=== PATIENT | female | born 2000 | race Two or more races ===

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

== ENCOUNTER 2018-01-21 01:57 | Inpatient (IN) | payer MEDICAID ==
[~2018-01-21] VITALS: Ht 165.1 cm; Wt 112.0 kg
[2018-01-21 02:23] VITALS: BP 138/84
[2018-01-21] MEDS ORDERED: OXYTOCIN 30U/ 0.9% NaCL 500ML 500 ML IV ONE (05:02)
[2018-01-21] MEDS ORDERED: D5%-LACTATED RINGERS 1,000 ML IV SCH (05:02)
[2018-01-21] MEDS ORDERED: NEWBORN KIT ONE (05:05)
[2018-01-21] MEDS: LACTATED RINGERS 1,000 ML IV SCH ×2 (05:15→13:23)
[2018-01-21] MEDS ORDERED: FENTANYL PF 100 MCG/2ML IVPush PRN (05:30)
[2018-01-21] MEDS ORDERED: CALCIUM CARBONATE 500 MG TAB.CHEW PO PRN (05:30)
[2018-01-21] MEDS ORDERED: FENTANYL PF 100 MCG/2ML IV PRN (05:30)
[2018-01-21] MEDS ORDERED: ONDANSETRON ODT 4 MG PO PRN (05:30)
[2018-01-21 05:35] LABS: BASOPHILS # (AUTO) 0.02 x10^3/uL (0-0.3); BASOPHILS % (AUTO) 0 % (0-1); EOSINOPHILS # (AUTO) 0.11 x10^3/uL (0-0.8); EOSINOPHILS % (AUTO) 1 % (1-7); LYMPHOCYTES # (AUTO) 2.18 x10^3/uL (1-6.1); LYMPHOCYTES % (AUTO) 26 % (22-44); MD NO; MEAN CORPUSCULAR HEMOGLOBIN 30.2 pg (27.0-34.8); MEAN CORPUSCULAR HGB CONC 33.6 g/dL (32.4-35.8); MEAN CORPUSCULAR VOLUME 89.7 fL (80-100); MEAN PLATELET VOLUME 8.3 fL (7.4-10.4); MONOCYTES # (AUTO) 0.43 x10^3/uL (0-1.4); MONOCYTES % (AUTO) 5 % (2-9); NEUTROPHILS # (AUTO) 5.65 x10^3/uL (1.8-8.0); NEUTROPHILS % (AUTO) 67 % (42-75); PLATELET COUNT 228 x10^3/uL (130-400); RED BLOOD COUNT 4.11 x10^6/uL (3.82-5.3); RED CELL DISTRIBUTION WIDTH 14.2 % (9.6-15.2)
[2018-01-21] MEDS ORDERED: PENICILLIN GK 5,000,000 UNITS in SODIUM CHLORIDE 0.9% 100 ML IVPB ONE (06:00)
[2018-01-21 07:14] VITALS: BP 128/78
[2018-01-21] MEDS ORDERED: OXYTOCIN 30U/ 0.9% NaCL 500ML 500 ML ONE ×2 (08:19→17:06)
[2018-01-21] MEDS ORDERED: LIDOCAINE/PF 1%, 30ML ONE (08:35)
[2018-01-21] MEDS ORDERED: MISOPROSTOL 200 MCG TABLET ONE (08:35)
[2018-01-21] MEDS ORDERED: ONDANSETRON ODT 4 MG ONE (08:45)
[2018-01-21] MEDS ORDERED: ONDANSETRON 2MG/ML, 2ML ONE (08:45)
[2018-01-21] MEDS ORDERED: ONDANSETRON 2MG/ML, 2ML IVPush ONE (09:00)
[2018-01-21] MEDS: PENICILLIN GK 2,500,000 UNITS in DEXTROSE 5% 100 ML IVPB SCH ×2 (09:59→13:56)
[2018-01-21] MEDS ORDERED: OXYTOCIN 30U/ 0.9% NaCL 500ML 500 ML IV SCH (11:00)
[2018-01-21] MEDS ORDERED: FENTANYL PF 100 MCG/2ML ONE (15:02)
[2018-01-21] MEDS ORDERED: FENTANYL/BUPIV./NS/PF 250 ML EPIDCONT SCH (15:22)
[2018-01-21] MEDS ORDERED: FENTANYL PF 500 MCG, BUPIVACAINE/PF 0.5%, 30ML 62.5 ML in SODIUM CHLORIDE 0.9% 177.5 ML EPIDCONT SCH (15:30)
[2018-01-21] MEDS ORDERED: BUPIVACAINE 0.25% ONE (15:48)
[2018-01-21] MEDS ORDERED: IBUPROFEN 200 MG TABLET PO PRN (16:00)
[2018-01-21] MEDS ORDERED: IBUPROFEN 600 MG TABLET ONE (16:16)
[2018-01-21] MEDS ORDERED: OXYcodone IR 5MG TABLET PO PRN ×2 (16:30)
[2018-01-21] MEDS ORDERED: ONDANSETRON 2MG/ML, 2ML IV PRN (16:30)
[2018-01-21] MEDS ORDERED: CARBOPROST TROMETHAMINE 250 MCG/ML, 1ML IM PRN (16:30)
[2018-01-21] MEDS ORDERED: METHYLERGONOVINE 0.2 MG/ML IM PRN (16:30)
[2018-01-21] MEDS ORDERED: IBUPROFEN 800 MG TABLET PO PRN (16:30)
[2018-01-21] MEDS ORDERED: MISOPROSTOL 200 MCG TABLET PR PRN (16:30)
[2018-01-21] MEDS: OXYTOCIN 30U/ 0.9% NaCL 500ML 500 ML IV SCH (17:00)
[2018-01-21 20:30] VITALS: BP 130/71
[2018-01-21] MEDS: IBUPROFEN 600 MG TABLET PO PRN (22:50)
[2018-01-22] VITALS: BP 116/67
[2018-01-22] MEDS: OXYTOCIN 30U/ 0.9% NaCL 500ML 500 ML IV SCH ×3 (03:00→23:00)
[2018-01-22 03:57] VITALS: BP 114/68
[2018-01-22] MEDS: IBUPROFEN 600 MG TABLET PO PRN ×3 (05:06→18:17)
[2018-01-22 05:57] LABS: BASOPHILS # (AUTO) 0.03 x10^3/uL (0-0.3); BASOPHILS % (AUTO) 0 % (0-1); EOSINOPHILS # (AUTO) 0.05 x10^3/uL (0-0.8); EOSINOPHILS % (AUTO) 1 % (1-7); LYMPHOCYTES # (AUTO) 2.23 x10^3/uL (1-6.1); LYMPHOCYTES % (AUTO) 24 % (22-44); MD NO; MEAN CORPUSCULAR HEMOGLOBIN 30.7 pg (27.0-34.8); MEAN CORPUSCULAR HGB CONC 33.8 g/dL (32.4-35.8); MEAN CORPUSCULAR VOLUME 90.8 fL (80-100); MEAN PLATELET VOLUME 8.7 fL (7.4-10.4); MONOCYTES # (AUTO) 0.61 x10^3/uL (0-1.4); MONOCYTES % (AUTO) 7 % (2-9); NEUTROPHILS % (AUTO) 68 % (42-75); PLATELET COUNT 217 x10^3/uL (130-400); RED BLOOD COUNT 3.63 x10^6/uL (3.82-5.3); RED CELL DISTRIBUTION WIDTH 14.4 % (9.6-15.2)
[2018-01-22] MEDS: PRENATAL VIT/IRON/FA 1 EACH TABLET PO SCH (09:00)
[2018-01-22 09:15] VITALS: BP 117/71
[2018-01-22 12:29] VITALS: BP 126/77
[2018-01-22 21:00] VITALS: BP 119/60
[2018-01-23 07:45] VITALS: BP 130/84
[2018-01-23] MEDS: PRENATAL VIT/IRON/FA 1 EACH TABLET PO SCH (08:22)
[2018-01-23] MEDS: IBUPROFEN 600 MG TABLET PO PRN (08:23)
== END 2018-01-23 12:30 | disposition home or self-care (01) | DRG 807 ==
LOC: LDOP 01:57 → LDIP 05:05 → 2NW 19:25
PROVIDERS: ADMIT Obstetrics & Gynecology; ATTEND Obstetrics & Gynecology
PROC: 10E0XZZ Delivery of Products of Conception, External Approach (ICD-10-PCS; principal; 2018-01-21)
PROC: 10907ZC Drainage of Amniotic Fluid, Therapeutic from Products of Conception, Via Natural or Artificial Opening (ICD-10-PCS; 2018-01-21)
DX: O99.824 Streptococcus B carrier state complicating childbirth (principal); Z37.0 Single live birth; Z3A.37 37 weeks gestation of pregnancy; Z88.6 Allergy status to analgesic agent; O63.9 Long labor, unspecified
CPT/HCPCS: 36415; 85025; 86850; 86900; G0378; J2405; J2540; J3010; J3490; J2590; J7050; J7120

== ENCOUNTER 2019-10-09 08:57 | Emergency (ER) | payer MEDICAID ==
[~2019-10-09] VITALS: Ht 165.1 cm; Wt 94.1 kg
[~2019-10-09 08:57] MED LIST changes: +ACET325T14 PO
[2019-10-09 09:33] VITALS: BP 114/69
--- NOTE | 2019-10-09 09:42 | NUR ---
TASK RN NOTE: PT PRESENTS TO ED SEEKING TEST, STATES "AT THE BEGINNING OF AUGUST I HAD A POSITIVE TEST AND THEN TWO NEGATIVE AFTER THAT." PT REPORTS FEELING INTRA-ABDOMINAL MOVEMENT. PT STATES LMP 09/20/19. PT DENIES VAG BLEEDING/DISCHARGE, PT DENIES PAIN, DENIES CRAMPING. BP AND SPO2 MONITORS IN PLACE. CLEAN CATCH URINE SAMPLE SENT TO LAB. REPORT GIVEN TO PRIMARY RN MOLLY.
[2019-10-09 09:48] LABS: MICROSCOPIC NOT IND
== END 2019-10-09 10:52 | disposition home or self-care (01) ==
LOC: ED 09:39
DX: Z00.00 Encounter for general adult medical examination without abnormal findings (principal)
CPT/HCPCS: 36415; 81003; 84703; 99283

== ENCOUNTER 2019-12-30 11:37 | Emergency (ER) | payer MEDICAID ==
[~2019-12-30] VITALS: Ht 165.1 cm; Wt 94.8 kg
--- NOTE | 2019-12-30 12:33 | NUR ---
TASK RN NOTE: PT RESTING IN BED, TELEVISION ON. NAD NOTED AT THIS TIME. AWAITING ORDERS.
[2019-12-30 13:00] LABS: BASOPHILS # (AUTO) 0.03 x10^3/uL (0-0.1); BASOPHILS % (AUTO) 1 % (0-1); EOSINOPHILS # (AUTO) 0.06 x10^3/uL (0-0.4); EOSINOPHILS % (AUTO) 1 % (1-7); LYMPHOCYTES # (AUTO) 2.08 x10^3/uL (1-3.4); LYMPHOCYTES % (AUTO) 31 % (22-44); MD NO; MEAN CORPUSCULAR HEMOGLOBIN 30.7 pg (27.0-34.8); MEAN CORPUSCULAR HGB CONC 33.1 g/dL (32.4-35.8); MEAN CORPUSCULAR VOLUME 92.7 fL (80-100); MEAN PLATELET VOLUME 7.9 fL (7.4-10.4); MONOCYTES # (AUTO) 0.37 x10^3/uL (0.2-0.8); MONOCYTES % (AUTO) 6 % (2-9); NEUTROPHILS # (AUTO) 4.21 x10^3/uL (1.8-6.8); NEUTROPHILS % (AUTO) 62 % (42-75); PLATELET COUNT 241 x10^3/uL (130-400); RED BLOOD COUNT 4.51 x10^6/uL (3.82-5.3); RED CELL DISTRIBUTION WIDTH 12.7 % (9.6-15.2)
[2019-12-30 13:11] LABS: ALBUMIN 3.3 g/dL (3.4-5.0); ANION GAP 8 mmol/L (5-15); CHLORIDE 107 mmol/L (98-107)
--- NOTE | 2019-12-30 13:15 | NUR ---
PT BACK FROM US. LAYING ON JEANETH LOVELL VSS. PT DENIES ANY NEEDS AT THIS TIME. BLANKET PROVIDED. CALL LIGHT WITHIN REACH.
[2019-12-30 13:29] LABS: ALANINE AMINOTRANSFERASE 18 U/L (12-78); ALKALINE PHOSPHATASE 35 U/L (45-117); BILIRUBIN,TOTAL 0.6 mg/dL (0.2-1.0); CREATININE 0.63 mg/dL (0.55-1.02); TOTAL PROTEIN 6.9 g/dL (6.4-8.2)
[2019-12-30 13:41] LABS: MICROSCOPIC NOT IND
[2019-12-30 14:00] VITALS: BP 104/72
--- NOTE | 2019-12-30 14:16 | NUR ---
Patient given discharge instructions and they have confirmed that they understand the instructions. Patient ambulatory with steady gait.
== END 2019-12-30 14:21 | disposition home or self-care (01) ==
LOC: ED 13:25
DX: O20.0 Threatened abortion (principal); Z32.01 Encounter for pregnancy test, result positive
CPT/HCPCS: 36415; 76801; 80053; 81003; 84702; 85025; 86901; 99284

== ENCOUNTER 2020-03-27 21:52 | Outpatient (CLI) | payer SELFPAY ==
[~2020-03-27] VITALS: Ht 165.1 cm; Wt 96.0 kg
[2020-03-27 22:18] VITALS: BP 133/64
[2020-03-27 22:40] LABS: MICROSCOPIC AUTO
== END 2020-03-27 23:59 | disposition home or self-care (01) ==
LOC: LDOP 21:52 → MERGE 21:52 → LDOP 23:59
PROVIDERS: ATTEND Obstetrics & Gynecology
DX: O26.892 Other specified pregnancy related conditions, second trimester (principal); R10.9 Unspecified abdominal pain; Z3A.22 22 weeks gestation of pregnancy
CPT/HCPCS: 81001; 87086

== ENCOUNTER 2020-03-27 22:34 | Outpatient (CLI) | payer MEDICAID ==
[~2020-03-27] VITALS: Ht 165.1 cm; Wt 96.0 kg
[2020-03-27 22:18] VITALS: BP 133/64
== END 2020-03-27 23:27 | disposition home or self-care (01) ==
LOC: LDOP 22:34
PROVIDERS: ATTEND Obstetrics & Gynecology
DX: O26.892 Other specified pregnancy related conditions, second trimester (principal); R10.9 Unspecified abdominal pain; Z3A.22 22 weeks gestation of pregnancy
CPT/HCPCS: 99201; G0463

== ENCOUNTER 2020-03-27 23:31 | Emergency (ER) | payer MEDICAID ==
[~2020-03-27] VITALS: Ht 165.1 cm; Wt 95.0 kg
--- NOTE | 2020-03-27 23:38 | NUR ---
Cleared by OB here for abdominal pain.
[2020-03-28] MEDS ORDERED: ONDANSETRON 2MG/ML, 2ML IVPush ONE
[2020-03-28] MEDS ORDERED: MORPHINE SULFATE 4 MG/ML, 1ML IVPush PRN
[2020-03-28] MEDS ORDERED: SODIUM CHLORIDE 0.9% 1,000 ML IV ONE
[2020-03-28] MEDS ORDERED: SODIUM CHLORIDE FLUSH 10ML SYR IVF ONE
[2020-03-28] MEDS ORDERED: ONDANSETRON 2MG/ML, 2ML ONE (00:09)
[2020-03-28] MEDS ORDERED: MORPHINE SULFATE 4 MG/ML, 1ML ONE (00:09)
[2020-03-28 00:14] LABS: BASOPHILS % (AUTO) 1 % (0-1); EOSINOPHILS % (AUTO) 1 % (1-7); LYMPHOCYTES % (AUTO) 35 % (22-44); MD NO; MEAN CORPUSCULAR HEMOGLOBIN 31.2 pg (27.0-34.8); MEAN CORPUSCULAR HGB CONC 34.5 g/dL (32.4-35.8); MEAN PLATELET VOLUME 8.3 fL (7.4-10.4); MONOCYTES % (AUTO) 5 % (2-9); NEUTROPHILS % (AUTO) 59 % (42-75); PLATELET COUNT 230 x10^3/uL (130-400); RED BLOOD COUNT 4.15 x10^6/uL (3.82-5.3); RED CELL DISTRIBUTION WIDTH 13.6 % (9.6-15.2)
--- NOTE | 2020-03-28 00:21 | NUR ---
LATE ENTRY. CC OF ABD PAIN 5/10 BILAT LOWER ABD SINCE 8 PM, WORSE ON RIGHT SIDE. . SO AT BEDSIDE. PT LAYING ON R SIDE FOR COMFORT.
[2020-03-28 00:25] LABS: ANION GAP 7 mmol/L (5-15); CALCIUM 8.6 mg/dL (8.5-10.1); CHLORIDE 109 mmol/L (98-107); CREATININE 0.63 mg/dL (0.55-1.02)
[2020-03-28 00:26] LABS: ALANINE AMINOTRANSFERASE 13 U/L (12-78)
[2020-03-28 00:28] LABS: ALKALINE PHOSPHATASE 45 U/L (45-117); BILIRUBIN,TOTAL 0.3 mg/dL (0.2-1.0); TOTAL PROTEIN 6.7 g/dL (6.4-8.2)
[2020-03-28] MEDS ORDERED: FAMOTIDINE 20 MG TABLET ONE (01:17)
[2020-03-28] MEDS ORDERED: MAALOX/HYOSCYAMINE/LIDOCAINE 45 ML BTL ONE (01:17)
[2020-03-28 01:20] LABS: MICROSCOPIC NOT IND
[2020-03-28] MEDS ORDERED: MAALOX/HYOSCYAMINE/LIDOCAINE 45 ML BTL PO ONE (01:30)
[2020-03-28] MEDS ORDERED: FAMOTIDINE 20 MG TABLET PO/NG ONE (01:30)
[2020-03-28 03:01] VITALS: BP 110/57
== END 2020-03-28 03:03 | disposition home or self-care (01) ==
LOC: ED 23:42
DX: O26.892 Other specified pregnancy related conditions, second trimester (principal); R10.84 Generalized abdominal pain; Z90.49 Acquired absence of other specified parts of digestive tract; Z3A.22 22 weeks gestation of pregnancy
CPT/HCPCS: 36415; 76815; 80053; 81003; 85025; 96361; 96374; 96375; 99285; J2270; J2405; J7030

== ENCOUNTER 2020-04-06 15:25 | Outpatient (CLI) | payer MEDICAID ==
[~2020-04-06] VITALS: Ht 165.1 cm; Wt 95.9 kg
[2020-04-06 15:37] VITALS: BP 120/88
[2020-04-06 15:39] VITALS: BP 120/88
[2020-04-06 16:23] LABS: MICROSCOPIC INDICATED
[2020-04-06] MEDS ORDERED: D5%-LACTATED RINGERS 1,000 ML IV SCH (16:30)
[2020-04-06] MEDS ORDERED: LACTATED RINGERS 1,000 ML IVBOLUS ONE (16:30)
[2020-04-06] MEDS ORDERED: ONDANSETRON 2MG/ML, 2ML IVPush PRN (16:30)
[2020-04-06] MEDS ORDERED: ONDANSETRON 2MG/ML, 2ML ONE (16:33)
[2020-04-06 16:49] LABS: ALANINE AMINOTRANSFERASE 16 U/L (12-78); ALBUMIN 3.1 g/dL (3.4-5.0); ANION GAP 7 mmol/L (5-15); BASOPHILS % (AUTO) 0 % (0-1); CHLORIDE 110 mmol/L (98-107); CREATININE 0.56 mg/dL (0.55-1.02); EOSINOPHILS % (AUTO) 0 % (1-7); LYMPHOCYTES % (AUTO) 22 % (22-44); MEAN CORPUSCULAR HEMOGLOBIN 31.5 pg (27.0-34.8); MEAN CORPUSCULAR HGB CONC 34.7 g/dL (32.4-35.8); MEAN PLATELET VOLUME 8.9 fL (7.4-10.4); MONOCYTES % (AUTO) 5 % (2-9); NEUTROPHILS % (AUTO) 73 % (42-75); PLATELET COUNT 217 x10^3/uL (130-400); RED BLOOD COUNT 4.21 x10^6/uL (3.82-5.3); RED CELL DISTRIBUTION WIDTH 13.5 % (9.6-15.2)
[2020-04-06 16:50] LABS: MD NO
[2020-04-06 16:51] LABS: ALKALINE PHOSPHATASE 52 U/L (45-117); BILIRUBIN,TOTAL 0.3 mg/dL (0.2-1.0)
[2020-04-06] MEDS ORDERED: ACETAMINOPHEN 325 MG TABLET ONE (17:18)
[2020-04-06] MEDS ORDERED: ACETAMINOPHEN 325 MG TABLET PO PRN (17:30)
== END 2020-04-06 19:28 | disposition home or self-care (01) ==
LOC: LDOP 15:25
PROVIDERS: ATTEND Obstetrics & Gynecology
DX: O21.2 Late vomiting of pregnancy (principal); Z20.828 Contact with and (suspected) exposure to other viral communicable diseases; O26.892 Other specified pregnancy related conditions, second trimester; R10.9 Unspecified abdominal pain; R19.7 Diarrhea, unspecified; Z3A.23 23 weeks gestation of pregnancy
CPT/HCPCS: 36415; 76817; 80053; 81001; 85025; 87086; 87635; 96361; 96374; 99211; J2405; J7120; 96360; 96375; G0463

== ENCOUNTER 2020-05-09 13:06 | Outpatient (CLI) | payer MEDICAID ==
[~2020-05-09] VITALS: Ht 165.1 cm; Wt 102.3 kg
== END 2020-05-09 13:58 | disposition home or self-care (01) ==
LOC: LDOP 13:06
PROVIDERS: ATTEND Obstetrics & Gynecology
DX: O36.8130 Decreased fetal movements, third trimester, not applicable or unspecified (principal); O99.513 Diseases of the respiratory system complicating pregnancy, third trimester; R06.02 Shortness of breath; Z3A.28 28 weeks gestation of pregnancy
CPT/HCPCS: 59025

== ENCOUNTER 2020-05-12 10:28 | Emergency (ER) | payer MEDICAID ==
[~2020-05-12] VITALS: Ht 165.1 cm; Wt 103.1 kg
--- NOTE | 2020-05-12 10:56 | NUR ---
patient arrives with sob and pain in back left upper rib area that began this morning. she had covid three weeks ago, but has been sob afterwards getting increasingly worse.
--- NOTE | 2020-05-12 11:03 | NUR ---
PATIENT 27 WEEKS . NO COMPLICATIONS ACCORDING TO HER. PARA 2/ 5
[2020-05-12] MEDS ORDERED: ACETAMINOPHEN 500 MG TABLET PO ONE (11:30)
[2020-05-12] MEDS ORDERED: ACETAMINOPHEN 500 MG TABLET ONE (11:32)
[2020-05-12 11:53] LABS: BASOPHILS % (AUTO) 0 % (0-1); EOSINOPHILS % (AUTO) 0 % (1-7); LYMPHOCYTES % (AUTO) 17 % (22-44); MEAN CORPUSCULAR HEMOGLOBIN 31.4 pg (27.0-34.8); MEAN CORPUSCULAR HGB CONC 34.4 g/dL (32.4-35.8); MEAN PLATELET VOLUME 8.3 fL (7.4-10.4); MONOCYTES % (AUTO) 5 % (2-9); NEUTROPHILS % (AUTO) 79 % (42-75); PLATELET COUNT 238 x10^3/uL (130-400); RED BLOOD COUNT 4.01 x10^6/uL (3.82-5.3)
[2020-05-12 12:05] LABS: ALANINE AMINOTRANSFERASE 14 U/L (12-78); ALBUMIN 2.7 g/dL (3.4-5.0); ANION GAP 7 mmol/L (5-15); CALCIUM 8.9 mg/dL (8.5-10.1); CHLORIDE 110 mmol/L (98-107); CREATININE 0.62 mg/dL (0.55-1.02)
[2020-05-12 12:08] LABS: MD NO
[2020-05-12 12:12] LABS: ALKALINE PHOSPHATASE 82 U/L (45-117); BILIRUBIN,TOTAL 0.4 mg/dL (0.2-1.0); TOTAL PROTEIN 6.6 g/dL (6.4-8.2)
--- NOTE | 2020-05-12 12:41 | NUR ---
CALLED L AND D TO ALERT THEM A 27 WEEK PATIENT HERE IN ER
--- NOTE | 2020-05-12 13:07 | NUR ---
FHTs 140 bpm, no decreases, increases heard. Pt states baby active. Declines cramping, LOF, bleeding.
[2020-05-12 13:25] VITALS: BP 128/70
== END 2020-05-12 14:10 | disposition home or self-care (01) ==
LOC: ED 12:26
DX: O98.513 Other viral diseases complicating pregnancy, third trimester (principal); J06.9 Acute upper respiratory infection, unspecified; Z20.822 Contact with and (suspected) exposure to COVID-19; R00.0 Tachycardia, unspecified; Z3A.29 29 weeks gestation of pregnancy
CPT/HCPCS: 36415; 71045; 80053; 83605; 84145; 85025; 86140; 87040; 93005; 99285

== ENCOUNTER 2020-07-08 14:38 | Inpatient (IN) | payer MEDICAID ==
[~2020-07-08] VITALS: Ht 165.1 cm; Wt 112.7 kg
[2020-07-08 14:35] VITALS: BP 163/75
[2020-07-08 15:15] LABS: BASOPHILS % (AUTO) 1 % (0-1); EOSINOPHILS % (AUTO) 0 % (1-7); LYMPHOCYTES % (AUTO) 26 % (22-44); MEAN CORPUSCULAR HEMOGLOBIN 30.7 pg (27.0-34.8); MEAN CORPUSCULAR HGB CONC 33.9 g/dL (32.4-35.8); MEAN PLATELET VOLUME 9.4 fL (7.4-10.4); MONOCYTES % (AUTO) 6 % (2-9); NEUTROPHILS % (AUTO) 68 % (42-75); PLATELET COUNT 186 x10^3/uL (130-400); RED BLOOD COUNT 4.51 x10^6/uL (3.82-5.3); RED CELL DISTRIBUTION WIDTH 13.4 % (9.6-15.2)
[2020-07-08 15:18] LABS: MD NO
[2020-07-08 15:26] LABS: MICROSCOPIC NOT IND
[2020-07-08 15:28] LABS: ALANINE AMINOTRANSFERASE 21 U/L (12-78); ALBUMIN 2.7 g/dL (3.4-5.0); ANION GAP 8 mmol/L (5-15); CALCIUM 9.1 mg/dL (8.5-10.1); CHLORIDE 109 mmol/L (98-107); CREATININE 0.63 mg/dL (0.55-1.02)
[2020-07-08 15:30] LABS: ALKALINE PHOSPHATASE 169 U/L (45-117); BILIRUBIN,TOTAL 0.3 mg/dL (0.2-1.0); TOTAL PROTEIN 6.6 g/dL (6.4-8.2)
[2020-07-08 15:38] LABS: BILIRUBIN, DIRECT < 0.1 mg/dL (0.1-0.2)
[2020-07-08 15:40] LABS: CREATININE,URINE RANDOM 33.9 mg/dL
[2020-07-08] MEDS ORDERED: OXYTOCIN 30U/ 0.9% NaCL 500ML 500 ML IV ONE (16:00)
[2020-07-08] MEDS ORDERED: ONDANSETRON 2MG/ML, 2ML IVPush PRN (16:00)
[2020-07-08] MEDS ORDERED: CALCIUM CARBONATE 500 MG TAB.CHEW PO PRN (16:00)
[2020-07-08] MEDS ORDERED: FENTANYL PF 100 MCG/2ML IVPush PRN (16:00)
[2020-07-08] MEDS ORDERED: TERBUTALINE 1 MG/ML, 1ML SQ PRN (16:00)
[2020-07-08] MEDS ORDERED: TERBUTALINE 1 MG/ML, 1ML IVPush PRN (16:00)
[2020-07-08] MEDS ORDERED: FENTANYL PF 100 MCG/2ML IV PRN (16:00)
[2020-07-08] MEDS: D5%-LACTATED RINGERS 1,000 ML IV SCH (17:00)
[2020-07-08] MEDS: LACTATED RINGERS 1,000 ML IV SCH (18:00)
[2020-07-08] MEDS ORDERED: NEWBORN KIT ONE (18:21)
[2020-07-08] MEDS ORDERED: LIDOCAINE 1%, 20ML ONE (18:22)
[2020-07-08] MEDS ORDERED: MISOPROSTOL 200 MCG TABLET ONE (18:22)
[2020-07-08] MEDS ORDERED: OXYTOCIN 30U/ 0.9% NaCL 500ML 500 ML IV PRN (19:00)
[2020-07-08] MEDS ORDERED: ACETAMINOPHEN 325 MG TABLET ONE (19:31)
[2020-07-08] MEDS: ACETAMINOPHEN 325 MG TABLET PO PRN (19:34)
[2020-07-08] MEDS ORDERED: PENICILLIN GK 5,000,000 UNITS in DEXTROSE 5% 100 ML IVPB ONE (21:00)
[2020-07-09] MEDS: PENICILLIN GK 2,500,000 UNITS in DEXTROSE 5% 100 ML IVPB SCH ×2 (00:51→05:25)
[2020-07-09] MEDS: LACTATED RINGERS 1,000 ML IV SCH ×4 (00:52→19:11)
[2020-07-09] MEDS: D5%-LACTATED RINGERS 1,000 ML IV SCH ×4 (01:00→19:11)
[2020-07-09] MEDS ORDERED: HYDROcodone/APAP 5/325 TABLET PO PRN (11:30)
[2020-07-09] MEDS ORDERED: CALCIUM CARBONATE 500 MG TAB.CHEW PO PRN (11:30)
[2020-07-09] MEDS ORDERED: ACETAMINOPHEN 325 MG TABLET PO PRN ×2 (11:30)
[2020-07-09] MEDS: OXYTOCIN 30U/ 0.9% NaCL 500ML 500 ML IV SCH ×11 (11:30→19:12)
[2020-07-09] MEDS ORDERED: ONDANSETRON 2MG/ML, 2ML IV PRN (11:30)
[2020-07-09] MEDS ORDERED: DOCUSATE 100 MG CAPSULE PO PRN (11:30)
[2020-07-09] MEDS ORDERED: SIMETHICONE 80 MG CHEW TAB PO PRN (11:30)
[2020-07-09] MEDS ORDERED: BISACODYL 10 MG SUPP PR PRN (11:30)
[2020-07-09] MEDS ORDERED: MISOPROSTOL 200 MCG TABLET PR PRN (11:30)
[2020-07-09 12:40] VITALS: BP 133/82
[2020-07-09] MEDS: ACETAMINOPHEN 325 MG TABLET PO PRN (12:48)
[2020-07-09 16:15] VITALS: BP 143/86
[2020-07-09] MEDS: IBUPROFEN 600 MG TABLET PO PRN (16:15)
[2020-07-09 18:55] LABS: BASOPHILS % (AUTO) 1 % (0-1); EOSINOPHILS % (AUTO) 0 % (1-7); LYMPHOCYTES % (AUTO) 12 % (22-44); MEAN CORPUSCULAR HEMOGLOBIN 30.7 pg (27.0-34.8); MEAN CORPUSCULAR HGB CONC 34.2 g/dL (32.4-35.8); MONOCYTES % (AUTO) 5 % (2-9); NEUTROPHILS % (AUTO) 82 % (42-75); PLATELET COUNT 180 x10^3/uL (130-400); RED CELL DISTRIBUTION WIDTH 13.4 % (9.6-15.2)
[2020-07-09 19:10] LABS: MD NO
[2020-07-09 20:00] VITALS: BP 119/76
[2020-07-09 23:57] VITALS: BP 99/63
[2020-07-10 03:15] VITALS: BP 142/93
[2020-07-10] MEDS: IBUPROFEN 600 MG TABLET PO PRN ×2 (07:18→22:29)
[2020-07-10] MEDS: HYDROcodone/APAP 5/325 TABLET PO PRN ×2 (07:18→22:29)
[2020-07-10] MEDS: OXYTOCIN 30U/ 0.9% NaCL 500ML 500 ML IV SCH ×5 (07:30→11:52)
[2020-07-10 08:00] VITALS: BP 135/80
[2020-07-10] MEDS: LACTATED RINGERS 1,000 ML IV SCH (09:00)
[2020-07-10] MEDS: PRENATAL VIT/IRON/FA 1 EACH TABLET PO SCH (09:00)
[2020-07-10] MEDS: D5%-LACTATED RINGERS 1,000 ML IV SCH (09:00)
[2020-07-10 16:00] VITALS: BP 138/89
[2020-07-10 19:20] VITALS: BP 126/78
[2020-07-11 00:10] VITALS: BP 118/72
[2020-07-11 04:20] VITALS: BP 132/86
[2020-07-11 07:25] VITALS: BP 136/80
[2020-07-11] MEDS: PRENATAL VIT/IRON/FA 1 EACH TABLET PO SCH (09:00)
[2020-07-11] MEDS ORDERED: HYDR-1067 PO (10:39)
[2020-07-11] MEDS ORDERED: DOCU-131 PO (10:39)
[2020-07-11] MEDS ORDERED: IBUP-1223 PO (10:39)
[2020-07-11] MEDS: IBUPROFEN 600 MG TABLET PO PRN (12:09)
== END 2020-07-11 18:07 | disposition home or self-care (01) | DRG 807 ==
LOC: LDOP 14:38 → LDIP 15:47 → 2NW 07-09 12:30
PROVIDERS: ADMIT Obstetrics & Gynecology; ATTEND Obstetrics & Gynecology
PROC: 10E0XZZ Delivery of Products of Conception, External Approach (ICD-10-PCS; principal; 2020-07-09)
PROC: 0UQMXZZ Repair Vulva, External Approach (ICD-10-PCS; 2020-07-09)
PROC: 0U7C7ZZ Dilation of Cervix, Via Natural or Artificial Opening (ICD-10-PCS; 2020-07-09)
PROC: 3E033VJ Introduction of Other Hormone into Peripheral Vein, Percutaneous Approach (ICD-10-PCS; 2020-07-09)
PROC: 10907ZC Drainage of Amniotic Fluid, Therapeutic from Products of Conception, Via Natural or Artificial Opening (ICD-10-PCS; 2020-07-09)
DX: O14.04 Mild to moderate pre-eclampsia, complicating childbirth (principal); Z37.0 Single live birth; O99.824 Streptococcus B carrier state complicating childbirth; Z20.822 Contact with and (suspected) exposure to COVID-19; O99.214 Obesity complicating childbirth; E66.9 Obesity, unspecified; O71.82 Other specified trauma to perineum and vulva; O99.344 Other mental disorders complicating childbirth; F32.9 Major depressive disorder, single episode, unspecified; Z3A.37 37 weeks gestation of pregnancy; Z83.3 Family history of diabetes mellitus; Z90.49 Acquired absence of other specified parts of digestive tract
CPT/HCPCS: 36415; 80053; 81003; 82248; 82570; 82962; 83615; 84156; 84550; 85025; 86592; 86850; 86900; 87635; G0378; J2540; J2590; J7120